=== PATIENT | male | born 1965 | race Caucasian/White ===

== ENCOUNTER 2018-07-06 18:45 | Emergency (ER) | payer BC ==
[2018-07-06] MEDS ORDERED: Sodium Chloride 0.9% 10 ML Syringe FLUSH PRN (18:57)
[2018-07-06] MEDS ORDERED: methylPREDNISolone Sodium Succinate 125 MG/2 ML SDV IVPUSH ONE (18:57)
[2018-07-06] MEDS ORDERED: Famotidine 20 MG/2 ML SDV IVPUSH ONE (18:57)
[2018-07-06] MEDS ORDERED: diphenhydrAMINE 50 MG/ML SDV IVPUSH ONE (18:57)
[2018-07-06] MEDS ORDERED: Sodium Chloride 0.9% 1,000 ML IV ONE (18:58)
--- NOTE | 2018-07-06 19:05 | EDM.PDOC ---
ED HPI GENERAL MEDICAL PROBLEM - General Chief Complaint: Allergic Reaction Stated Complaint: POSS ALLERGIC REACTION Time Seen by Provider: 07/06/18 18:55 Source of Information: Reports: Patient History Limitations: Reports: No Limitations - History of Present Illness INITIAL COMMENTS - FREE TEXT/NARRATIVE: 52-year-old male presents for evaluation and treatment of possible allergic reaction. Patient reports he was eating dinner tonight. States he had hamburger helper like dish. Reports that he started to feel his throat swelling. He also appreciates swelling to the right side of his neck and his bilateral hands. He i =has not appreciating hives but has been feeling itchy. No hives, chest pain or shortness of breath. He did take 2 25 mg Benadryl prior to arrival in the ER. 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 He has never required epinephrine as intervention for his allergies. He states he normally takes Benadryl and his symptoms resolved. Patient is not on any INOCENCIA or ARB medications. - Related Data Allergies Allergy/AdvReac Type Severity Reaction Status Date / Time shrimp Allergy Difficulty Verified 07/06/18 18:52 Breathing Home Meds: Home Meds EPINEPHrine [Epipen] 0.3 mg IM ASDIRECTED PRN #2 pen 07/06/18 [Rx] Famotidine [Pepcid] 20 mg PO DAILY #7 tab 07/06/18 [Rx] predniSONE [Prednisone] 20 mg PO BID #10 tablet 07/06/18 [Rx] Past Medical History - Past Health History Medical/Surgical History: Denies Medical/Surgical History Social & Family History - Tobacco Use Smoking Status *Q: Never Smoker - Caffeine Use Caffeine Use: Reports: None - Recreational Drug Use Recreational Drug Use: No ED ROS ALLERGIC REACTION - Review of Systems Review Of Systems: See Below HEENT: Reports: Throat Swelling, Other (reprots swelling to the right side of his neck) Respiratory: Denies: Shortness of Breath Cardiovascular: Denies: Chest Pain Skin: Reports: Pruritis. Denies: Rash ED EXAM GENERAL NO PERIP PULSE - Physical Exam Exam: See Below Exam Limited By: No Limitations General Appearance: Alert, WD/WN, No Apparent Distress Ears: Normal External Exam Nose: Normal Inspection Throat/Mouth: Normal Inspection, Normal Lips, Normal Oropharynx (no uvula swelling), No Airway Compromise, Other (voice is slightly horse) Neck: Other (swelling to the right submandibular) Respiratory/Chest: No Respiratory Distress, Lungs Clear, Normal Breath Sounds Cardiovascular: Normal Peripheral Pulses, Regular Rate, Rhythm, No Murmur Extremities: Normal Inspection Neurological: Alert, Oriented, Normal Cognition Psychiatric: Normal Affect, Normal Mood Skin Exam: Warm, Dry, Normal Color. No: Rash Course - Vital Signs Last Recorded V/S: Last Vital Signs Temp 98.6 F 07/06/18 18:48 Pulse 79 07/06/18 18:48 Resp 19 07/06/18 18:48 BP 132/83 07/06/18 18:48 Pulse Ox 93 L 07/06/18 18:48 - Orders/Labs/Meds Meds: Medications Discontinued Medications Generic Name Dose Route Start Last Admin Trade Name Freq PRN Reason Stop Dose Admin Diphenhydramine HCl 50 mg 07/06/18 18:57 07/06/18 19:08 Benadryl IVPUSH 07/06/18 18:58 50 mg ONETIME ONE Administration Famotidine 20 mg 07/06/18 18:57 07/06/18 19:08 Pepcid IVPUSH 07/06/18 18:58 20 mg ONETIME ONE Administration Sodium Chloride 1,000 mls @ 999 mls/hr 07/06/18 18:58 07/06/18 19:08 Normal Saline IV 07/06/18 19:58 999 mls/hr ONETIME ONE Administration Methylprednisolone Sodium Succinate 125 mg 07/06/18 18:57 07/06/18 19:08 Solu-Medrol IVPUSH 07/06/18 18:58 125 mg ONETIME ONE Administration Sodium Chloride 10 ml 07/06/18 18:57 07/06/18 19:08 Saline Flush FLUSH 10 ml ASDIRECTED PRN Administration Keep Vein Open - Re-Assessments/Exams Free Text/Narrative Re-Assessment/Exam: 07/06/18 20:24 Patient feels greatly improved. Patient is very anxious to go home. Re examined. Lungs clear. Uvular no swelling. No hives. Swelling to the neck decreased. Mild hoarseness of voice improved. Will discharge home with instructions to use antihistamine an H2 jono next 7 days. Prednisone next 5 days. Rx for epipen written. Discharge instructions as documented. Departure - Departure Time of Disposition: 20:30 Disposition: Home, Self-Care 01 Clinical Impression: Swelling Allergic reaction Qualifiers: Encounter type: initial encounter Qualified Code(s): T78.40XA - Allergy, unspecified, initial encounter - Discharge Information *PRESCRIPTION DRUG MONITORING PROGRAM REVIEWED*: No *COPY OF PRESCRIPTION DRUG MONITORING REPORT IN PATIENT MARIA GUADALUPE: No Prescriptions: EPINEPHrine [Epipen] 0.3 mg IM ASDIRECTED PRN #2 pen PRN Reason: Shortness Of Breath Famotidine [Pepcid] 20 mg PO DAILY #7 tab predniSONE [Prednisone] 20 mg PO BID #10 tablet Instructions: Anaphylactic Reaction, Adult, [id number] Referrals: PCP,None [Primary Care Provider] - Forms: ED Department Discharge Additional Instructions: Recommend an antihistamine such as claritin, allergra or zytrec. Start this tomorrow. take for the next 7 days. Take 2 50mg benadryl tonight prior to bed. H2 jono such as pepcid daily x 7 days. Prednisone 20mg bid x 5 days. Start tomorrow. Drink plenty of fluids. Epipen Rx written. Use for throat swelling, shortness of breath 1 time. Repeat after 5-15 minutes if symptoms continue. Follow-up with family med if symptoms have not resolved in one week. Recommend Shantel Chavez at the [facility]. Call [phone] to schedule with her. Please return to the ER should your symptoms change or worsen.
== END 2018-07-06 20:20 | disposition home or self-care (01) ==
LOC: JD.ED 18:45
DX: T78.1XXA Other adverse food reactions, not elsewhere classified, initial encounter (principal); R22.1 Localized swelling, mass and lump, neck; Z91.013 Allergy to seafood; Z79.899 Other long term (current) drug therapy
CPT/HCPCS: 96361; 96374; 96375; 99284; J1200; J2930; J3490; J7040; J7050

== ENCOUNTER 2025-02-22 07:48 | Day surgery (SDC) | payer BC ==
[2025-02-22] MEDS: Lactated Ringers 1,000 ML IV SCH (08:15)
[2025-02-22] MEDS ORDERED: Sodium Chloride 0.9% 10 ML Syringe FLUSH PRN (08:34)
[2025-02-22] MEDS ORDERED: Sodium Chloride 0.9% 10 ML Syringe FLUSH SCH (09:00)
[2025-02-22] MEDS ORDERED: Ondansetron 4 MG/2 ML SDV IVPUSH PRN (09:33)
[2025-02-22] MEDS ORDERED: HYDROmorphone 0.5 MG/0.5 ML Syringe IVPUSH PRN (09:33)
[2025-02-22] MEDS ORDERED: fentaNYL 100 MCG/2 ML SDV IVPUSH PRN (09:33)
[2025-02-22] MEDS ORDERED: Lidocaine 2% 5 ML SDV ONE (12:21)
[2025-02-22] MEDS ORDERED: Propofol 200 MG/20 ML SDV ONE ×2 (12:21→13:03)
== END 2025-02-22 14:10 | disposition home or self-care (01) ==
LOC: JD.SDS 07:48
PROVIDERS: ATTEND Surgery
DX: D12.3 Benign neoplasm of transverse colon (principal); D12.4 Benign neoplasm of descending colon; K51.40 Inflammatory polyps of colon without complications; K29.50 Unspecified chronic gastritis without bleeding; K64.8 Other hemorrhoids; K64.4 Residual hemorrhoidal skin tags; Z86.0100 Personal history of colon polyps, unspecified; Z91.013 Allergy to seafood
CPT/HCPCS: 43239; 45380; J2003; J2704; J7120; 00813